=== PATIENT | female | born 1970 | race Asian ===

== ENCOUNTER 2024-02-05 15:31 | Inpatient (IN) | payer OTHER ==
[~2024-02-05] VITALS: Ht 152.4 cm; Wt 86.5 kg
[2024-02-05] MEDS ORDERED: IOHEXOL 350 MG/ML 100 ML VIAL ONE (15:39)
[2024-02-05] MEDS ORDERED: SODIUM CHLORIDE 0.9% 100 ML ONE (15:40)
[2024-02-05] MEDS ORDERED: 0.9% SODIUM CHLORIDE 10 ML SYRINGE IVP ONE (15:40)
[2024-02-05] MEDS ORDERED: TENECTEPLASE 50 MG/10 ML KIT IVP ONE (16:06)
[2024-02-05 16:10] LABS: CALCIUM, TOTAL 8.4 mg/dL (8.8-10.5); CREATININE 1.78 mg/dL (0.60-1.30); POTASSIUM 3.5 mmol/L (3.5-5.1)
[2024-02-05 16:13] LABS: BASOPHILS % (AUTO) 0.5 % (0.0-2.0); EOSINOPHILS % (AUTO) 3.5 % (1.0-6.0); HEMOGLOBIN 11.4 g/dL (12.0-16.0); INR 1.1 (0.9-1.1); LYMPHOCYTES # (AUTO) 2.5 K/uL (1.0-4.8); LYMPHOCYTES % (AUTO) 24.7 % (22.0-44.0); MEAN CORPUSCULAR HEMOGLOBIN 28.6 pg (26.0-34.0); MEAN CORPUSCULAR HGB CONC 33.5 G/dL (31.0-37.0); MEAN CORPUSCULAR VOLUME 85 fL (80-100); MONOCYTES # (AUTO) 0.5 K/uL (0.1-1.0); MONOCYTES % (AUTO) 5.1 % (2.0-9.0); NEUTROPHILS # (AUTO) 6.7 K/uL (1.8-7.7); NEUTROPHILS % (AUTO) 66.2 % (40.0-70.0); PLATELET COUNT (AUTO) 213 K/uL (150-450); PROTHROMBIN TIME 11.1 SEC (9.4-11.6); RED BLOOD CELL COUNT(AUTO) 3.98 MIL/uL (4.00-5.20); RED CELL DISTRIBUTION WIDTH 13.6 % (11.5-14.5); WHITE BLOOD COUNT (AUTO) 10.1 K/uL (4.5-11.0)
[2024-02-05 16:16] LABS: ALBUMIN 3.6 g/dL (3.4-5.0); BILIRUBIN,TOTAL 0.5 mg/dL (0.1-1.0); CHOL/HDL RATIO 2.1 (3.9-5.7); TOTAL PROTEIN, SERUM 8.4 g/dL (6.4-8.2)
[2024-02-05 16:20] LABS: TROPONIN I-HIGH SENSITIVITY Less Than 4 ng/L (<51)
[2024-02-05] MEDS: TENECTEPLASE PER STROKE PROTOCOL CLINICAL ONE (16:23)
[2024-02-05] MEDS: TENECTEPLASE 50 MG/10 ML KIT IVP ONE (16:23)
[2024-02-05] MEDS: SODIUM CHLORIDE 0.9% 1,000 ML IV ONE (17:14)
[2024-02-05] MEDS ORDERED: ONDANSETRON HCL 4 MG/2 ML VIAL IVP PRN (17:30)
[2024-02-05] MEDS ORDERED: ACETAMINOPHEN 325 MG TABLET PO PRN (17:30)
[2024-02-05] MEDS ORDERED: SEMA0.258 SQ (19:01)
[2024-02-05] MEDS ORDERED: GLIP-102 PO (19:01)
[2024-02-05] MEDS ORDERED: EMPA25TA3 PO (19:01)
[2024-02-05] MEDS ORDERED: HYDR25TA2 PO (19:01)
[2024-02-05] MEDS ORDERED: METF-1211 PO (19:01)
[2024-02-05] MEDS ORDERED: ROSU20TA73 PO (19:01)
[2024-02-05] MEDS ORDERED: SERT-162 PO (19:01)
[2024-02-05] MEDS ORDERED: LISI-893 PO (19:01)
[2024-02-05 19:45] LABS: APPEARANCE,URINE CLEAR (CLEAR); BILIRUBIN,URINE NEGATIVE (NEGATIVE); COLOR,URINE LIGHT YELLOW (YELLOW); GLUCOSE, URINE (UA) >=1000 mg/dL (NEGATIVE); KETONES,URINE NEGATIVE (NEGATIVE); LEUKOCYTE ESTERASE ,URINE NEGATIVE (NEGATIVE); NITRATE,URINE NEGATIVE (NEGATIVE); OCCULT BLOOD,URINE TRACE (NEGATIVE); PH,URINE 5.5 (5.0-8.0); PH,URINE DRUG SCREEN 5.5 (5.0-8.0); PROTEIN,URINE 30-70 mg/dL (NEGATIVE); SPECIFIC GRAVITIY, URINE 1.026 (1.003-1.030); UROBILINOGEN,URINE <=1.0 mg/dL (<=1.0)
[2024-02-05 19:49] LABS: CREATININE,URINE RANDOM 57.6 mg/dL (30.0-125.0)
[2024-02-05 19:51] LABS: AMPHET/METH SCREEN,URINE NEGATIVE (NEGATIVE); BARBITURATE SCREEN, URINE NEGATIVE (NEGATIVE); BENZODIAZEPINES SCREEN,URINE NEGATIVE (NEGATIVE); CANNABINOID SCREEN,URINE NEGATIVE (NEGATIVE); COCAINE SCREEN,URINE NEGATIVE (NEGATIVE); METHADONE SCREEN, URINE NEGATIVE (NEGATIVE); OPIATE SCREEN,URINE NEGATIVE (NEGATIVE); PHENCYCLIDINE SCREEN,URINE NEGATIVE (NEGATIVE)
[2024-02-05 19:55] LABS: ALCOHOL, URINE DRUG SCREEN NEGATIVE (NEGATIVE)
[2024-02-05] MEDS: ATORVASTATIN CALCIUM 40 MG TABLET PO SCH (20:11)
[2024-02-05] MEDS: DOCUSATE SODIUM 100 MG CAPSULE PO SCH (20:11)
[2024-02-05 20:20] LABS: BACTERIA,URINE Rare /HPF (None Seen); RBC,URINE 0-2 /HPF (0-2); WBC,URINE 0-2 /HPF (0-5)
[2024-02-05] MEDS ORDERED: DEXTROSE 50%-WATER 25 GM/50 ML SYRINGE IVP PRN (20:45)
[2024-02-05] MEDS: CHLORHEXIDINE GLUCONATE 2% TOWELETTE [2'S/6'S] TP SCH (21:03)
[2024-02-05 21:55] LABS: BASOPHILS % (AUTO) 0.5 % (0.0-2.0); HEMATOCRIT 30.3 % (36-46); HEMOGLOBIN 10.3 g/dL (12.0-16.0); MEAN CORPUSCULAR HEMOGLOBIN 28.8 pg (26.0-34.0); MEAN CORPUSCULAR HGB CONC 33.8 G/dL (31.0-37.0); MEAN CORPUSCULAR VOLUME 85 fL (80-100); MONOCYTES # (AUTO) 0.5 K/uL (0.1-1.0); MONOCYTES % (AUTO) 6.2 % (2.0-9.0); NEUTROPHILS # (AUTO) 5.2 K/uL (1.8-7.7); NEUTROPHILS % (AUTO) 64.3 % (40.0-70.0); PLATELET COUNT (AUTO) 172 K/uL (150-450); RED BLOOD CELL COUNT(AUTO) 3.55 MIL/uL (4.00-5.20); RED CELL DISTRIBUTION WIDTH 13.8 % (11.5-14.5); WHITE BLOOD COUNT (AUTO) 8.2 K/uL (4.5-11.0)
[2024-02-05 22:10] LABS: TROPONIN I-HIGH SENSITIVITY 5 ng/L (<51)
[2024-02-05 23:00] VITALS: BP 114/75; PULSE 70; RESP 18
[2024-02-06] VITALS: BP 114/71; PULSE 69; RESP 16; TEMP 99.5
[2024-02-06] MEDS: ETHYL ALCOHOL 62% ANTISEPTIC NASAL SANITIZER 0.6 ML AMPUL NASAL SCH (01:21)
[2024-02-06 04:00] VITALS: BP 106/67; PULSE 64; RESP 15; TEMP 98
[2024-02-06 05:46] LABS: GLUCOMETER DEV NAME(LOC) ICU.S6; GLUCOSE,POINT OF CARE 83 MG/DL (70-110)
[2024-02-06 06:05] LABS: BASOPHILS % (AUTO) 0.7 % (0.0-2.0); EOSINOPHILS % (AUTO) 3.4 % (1.0-6.0); HEMATOCRIT 33.1 % (36-46); LYMPHOCYTES # (AUTO) 1.9 K/uL (1.0-4.8); LYMPHOCYTES % (AUTO) 22.2 % (22.0-44.0); MEAN CORPUSCULAR HEMOGLOBIN 28.8 pg (26.0-34.0); MEAN CORPUSCULAR HGB CONC 33.3 G/dL (31.0-37.0); MEAN CORPUSCULAR VOLUME 86 fL (80-100); MONOCYTES # (AUTO) 0.5 K/uL (0.1-1.0); MONOCYTES % (AUTO) 6.5 % (2.0-9.0); NEUTROPHILS # (AUTO) 5.6 K/uL (1.8-7.7); NEUTROPHILS % (AUTO) 67.2 % (40.0-70.0); PLATELET COUNT (AUTO) 171 K/uL (150-450); RED BLOOD CELL COUNT(AUTO) 3.84 MIL/uL (4.00-5.20); RED CELL DISTRIBUTION WIDTH 13.7 % (11.5-14.5); WHITE BLOOD COUNT (AUTO) 8.4 K/uL (4.5-11.0)
[2024-02-06 06:16] LABS: CALCIUM, TOTAL 8.2 mg/dL (8.8-10.5); CHOL/HDL RATIO 2.3 (3.9-5.7); CREATININE 1.37 mg/dL (0.60-1.30); MAGNESIUM 2.3 mg/dL (1.80-2.40); POTASSIUM 3.7 mmol/L (3.5-5.1)
[2024-02-06 06:20] LABS: TROPONIN I-HIGH SENSITIVITY 6 ng/L (<51)
[2024-02-06 07:42] LABS: CHOL/HDL RATIO 2.2 (3.9-5.7)
[2024-02-06 08:00] VITALS: BP 115/73; PULSE 60; RESP 13; TEMP 97.6
[2024-02-06] MEDS: CLOPIDOGREL BISULFATE 75 MG TABLET PO SCH (09:05)
[2024-02-06 12:00] VITALS: BP 111/73; PULSE 58; RESP 18; TEMP 97.4
[2024-02-06 12:36] LABS: GLUCOMETER DEV NAME(LOC) ICUN.5; GLUCOSE,POINT OF CARE 75 MG/DL (70-110)
[2024-02-06 16:00] VITALS: BP 124/82; PULSE 63; RESP 18; TEMP 98.7
[2024-02-06 16:50] LABS: GLUCOMETER DEV NAME(LOC) ICU.S6; GLUCOSE,POINT OF CARE 96 MG/DL (70-110)
[2024-02-06] MEDS: INSULIN LISPRO 100 UNITS/ML SQ PRN (17:07)
[2024-02-06 23:51] LABS: GLUCOMETER DEV NAME(LOC) ICUN.5; GLUCOSE,POINT OF CARE 183 MG/DL (70-110)
[2024-02-07] MEDS ORDERED: ASPIRIN 81 MG CHEWABLE TABLET PO SCH (09:00)
== END 2024-02-06 17:47 | disposition short-term general hospital (02) | DRG 62 ==
LOC: EMS 15:31 → EDH 17:23 → ICU 22:44
PROVIDERS: ADMIT Internal Medicine; ATTEND Internal Medicine
DX: I63.9 Cerebral infarction, unspecified (principal); N17.9 Acute kidney failure, unspecified; E11.22 Type 2 diabetes mellitus with diabetic chronic kidney disease; D64.9 Anemia, unspecified; E78.00 Pure hypercholesterolemia, unspecified; I12.9 Hypertensive chronic kidney disease with stage 1 through stage 4 chronic kidney disease, or unspecified chronic kidney disease; N18.9 Chronic kidney disease, unspecified; R29.707 NIHSS score 7; Z87.891 Personal history of nicotine dependence
CPT/HCPCS: 70496; 70498; 70551; 71045; 80048; 80053; 80061; 80307; 81001; 82570; 82948; 82962; 83036; 83735; 84300; 84484; 85025; 85610; 85730; 87081; 87481; 92610; 93005; 93306; 93880; 97162; 97530; 99285; J3101; J7050; 36415-L1; 36415-TC; 70450; 70450-TC